=== PATIENT | male | born 1995 | race African-American/Black ===

== ENCOUNTER 2018-08-01 17:33 | Emergency (ER) | payer OTHER, SELFPAY ==
--- NOTE | 2018-08-01 19:47 | RAD ---
RIGHT FOOT THREE VIEWS: 08/01/18 COMPARISON: None. HISTORY: Trauma, pain. FINDINGS: No fracture or evidence of dislocation. No radiopaque foreign body or subcutaneous gas. IMPRESSION: No acute findings. POS: [id number]
== END 2018-08-01 18:30 | disposition home or self-care (01) ==
LOC: NAV ERS 17:33
DX: S93.601A Unspecified sprain of right foot, initial encounter (principal); A08.4 Viral intestinal infection, unspecified; F90.9 Attention-deficit hyperactivity disorder, unspecified type; W22.8XXA Striking against or struck by other objects, initial encounter

== ENCOUNTER 2019-05-15 15:23 | Emergency (ER) | payer OTHER ==
[2019-05-15] MEDS ORDERED: Lidocaine 1% (PF) 30 ML VIAL ONE (16:04)
[2019-05-15] MEDS ORDERED: Bacitracin 1 PK ONE (16:30)
== END 2019-05-15 16:49 | disposition home or self-care (01) ==
LOC: NAV ERS 15:23
DX: S81.812A Laceration without foreign body, left lower leg, initial encounter (principal); F90.9 Attention-deficit hyperactivity disorder, unspecified type; V19.9XXA Pedal cyclist (driver) (passenger) injured in unspecified traffic accident, initial encounter
CPT/HCPCS: 12002; J2001

== ENCOUNTER 2019-12-26 16:14 | Emergency (ER) | payer OTHER ==
[2019-12-28 13:04] LABS: SARS-CoV-2 MS2 Positive; SARS-CoV-2 N Gene Negative; SARS-CoV-2 S Gene Negative; SARS-CoV-2 by NAA Not Detected (NotDetected); SARS-CoV-2 orf1ab Negative
== END 2019-12-26 16:45 | disposition home or self-care (01) ==
LOC: NAV ERS 16:14
DX: R51 Headache (principal); R07.9 Chest pain, unspecified; R09.81 Nasal congestion; Z20.828 Contact with and (suspected) exposure to other viral communicable diseases; F90.9 Attention-deficit hyperactivity disorder, unspecified type
CPT/HCPCS: 87635; 99283; U0003